=== PATIENT | male | born 1965 | race Caucasian/White ===

== ENCOUNTER 2018-08-10 21:04 | Inpatient (IN) ==
[2018-08-10 23:33] LABS: BASO# 0.05 X1000 (0.0-0.2); BASO% 0.3 % (0.0-0.8); EOS# 0.22 X1000 (0.0-0.7); EOS% 1.2 % (0.0-10.0); HEMATOCRIT 39.9 % (42.0-52.0); HEMOGLOBIN 13.6 g/dL (14.0-18.0); LYMPH# 1.45 X1000 (1.2-3.4); LYMPH% 7.8 % (20.5-51.1); MCH 28.6 PG (27-31); MCHC 34.1 g/dL (33-37); MCV 83.8 FL (81-99); MONO% 6.5 % (1.7-9.3); MPV 9.7 FL (7.4-10.4); NEUT# 15.66 X1000 (1.4-6.5); NEUT% 84.2 % (42.2-75.2); PLT 387 X1000 (130-400); RBC 4.76 XMIL (4.7-6.1); RDW 13.2 % (11.5-14.5); WBC 18.58 X1000 (4.8-10.8)
[2018-08-10] MEDS ORDERED: LEVAQUIN 500 MG/D5W 500 MG/100 ML IVPB IV SCH (23:45)
[2018-08-10] MEDS ORDERED: ZOFRAN IV PRN (23:45)
[2018-08-10] MEDS ORDERED: VANCOMYCIN 1 GM/NS 1 GM/250 ML IVPB IV ONE (23:47)
[2018-08-10] MEDS ORDERED: HUMALOG SUBQ ONE (23:49)
[2018-08-11 00:02] LABS: AGAP 17; ALB/GLOB RATIO 0.7; ALBUMIN 3.4 g/dL (3.5-5.0); ALKALINE PHOSPHATASE 127 U/L (32-122); BUN 18 mg/dL (8-22); C REACTIVE PROT QUANT 284.57 mg/L (0.00-5.00); CALCIUM 9.1 mg/dL (8.8-10.2); CHLORIDE 100 mmol/L (98-107); COSMO 288; CREATININE 1.1 mg/dL (0.7-1.2); ESTIMATED GFR > 60; GLUCOSE 421 mg/dL (70-104); GOT 10 U/L (10-34); GPT 11 U/L (10-44); POTASSIUM 4.2 mmol/L (3.5-5.1); SODIUM 134 mmol/L (136-145); TCO2 17 mmol/L (25-35); TOTAL BILIRUBIN 0.56 mg/dL (0.20-1.00); TOTAL PROTEIN 8.2 g/dL (6.3-8.3)
--- NOTE | 2018-08-11 00:33 | PROVIDER DOCUMENTATION ---
This chart was entered by Seble Davis Scribe, acting as scribe for Moises Becerra MD. HPI-Musculoskeletal Pain/Inj - GENERAL Chief Complaint: Extremity Pain Stated Complaint: (R) THIGH IS SWOLLEN, TIGHT, PAINFUL Time Seen by Provider: 08/10/18 21:37 Source: patient, family - HX OF PRESENT ILLNESS-MUSKULOSKELTAL Nature of Presenting Problem: 52 yom presents w/family w/ c/o rt outer thigh pain for 3.5 weeks after injected a new dm rx. pt is also on metformin and his pcp believed the injection rx would help control dm better. pt states pain is burning in nature and only in rt thigh. at bedside states pt had right sided weakness, gags, nausea, had fever on and off, and achy everywhere. pt doesn't check blood sugar regular but a1c is 8 last he checked. pt denies cp, abd pain, one sided weakness in er, headache and blurred vision. Review of Systems - Adult - REVIEW OF SYSTEMS - ADULT Constitutional: reports: see HPI, chills, fever. denies: fatique, night sweats Eyes: reports: no symptoms reported Ears, Nose, Mouth & Throat: reports: no symptoms reported Cardiovascular: reports: no symptoms reported. denies: chest pain Respiratory: reports: no symptoms reported. denies: chronic cough, cough, shortness of breath, wheezing Gastrointestinal: reports: see HPI, nausea, other (gagging). denies: abdominal pain, diarrhea, vomiting Genitourinary: reports: no symptoms reported Musculoskeletal: reports: see HPI, other (rt thigh swelling, rt thigh 510 cm and left thigh 480 cm). denies: bone pain, back pain, frequent leg cramps, joint pain, joint swelling, muscle aches, muscle weakness, neck pain Integumentary: reports: no symptoms reported Neurological: reports: no symptoms reported. denies: headache/migraines, loss of balance, numbness, paresthesia, seizure, slurred speech, syncope Psychiatric: reports: no symptoms reported Endocrine: reports: no symptoms reported Hematologic/Lymphatic: reports: no symptoms reported Allergic/Immunologic: reports: no symptoms reported All Other Systems: Reviewed and Negative Past History - Adult - PAST MEDICAL HISTORY-ADULT Review of Records: reports: Old Records Reviewed, Nursing Assessment Review, Medications Reviewed, Social history reviewed & non-contributory. Major Childhood Illnesses: reports: denies history Cardiovascular: reports: denies history Respiratory: reports: denies history Gastrointestinal: reports: denies history Obstetrical/Gynecological: reports: denies history Genitourinary: reports: denies history Musculoskeletal: reports: denies history Neurological: reports: denies history Psychiatric: reports: denies history Endocrine/Immune: reports: Diabetes Other Conditions: reports: denies history - PRIOR SURGERIES/PROCEDURES Surgical/Procedure History: reports: reviewed, not pertinent, other - PRIOR HOSPITALIZATIONS Prior Hospitalizations: reports: for other non-related - IMMUNIZATION STATUS Childhood Immunizations: See Nurse Assessment Flu Vaccine: See Nurse Assessment - FAMILY HISTORY Family History: reviewed, not pertinent - SOCIAL HISTORY Smoking: non-smoker Substance Use: alcohol Alcohol Use Frequency: rarely Physical Exam-Injury Related - Physical Exam-Injury Related Initial Vital Signs Reviewed: Yes General Appearance: alert, mild distress. negative: slow to respond, obtunded, combative Immobilization?: negative: backboard, C-collar Eyes: PERRL/EOMI, pink conjunctivae Head, Ears, Nose, Mouth & Throat: normocephalic/atraumatic, moist mucous membranes, normal ENT inspection Neck: non-tender, full range of motion, supple, normal inspection Respiratory: chest non-tender, lungs clear, normal breath sounds Cardiovascular: normal peripheral pulses, regular rate, rhythm Chest/Breast: deferred Peripheral Pulses: dorsalis-pedis (R): 2+, dorsalis-pedis (L): 2+ Abdominal Exam: normal bowel sounds, non tender, soft Male Genitalia: deferred Rectal Exam: deferred Hemoccult Exam: deferred Lymphatic: no adenopathy Back Exam: normal inspection, no CVA tenderness, no vertebral tenderness Extremity: normal range of motion, normal inspection, tenderness (tensor fasciae latae rt thigh). negative: calf tenderness, deformity, erythema, inflammation, pulse deficit, pedal edema, slow capillary refill, swelling Integumentary: normal color, warm/dry Neurologic: grossly normal, no motor/sensory deficits Psych/Mental Status: normal mood/affect, normal thought content, normal thought process, oriented x 3 - [place] Coma Score Best Eye Response ([place]): (4) open spontaneously Best Verbal Response ([place]): (5) oriented Best Motor Response ([place]): (6) obeys commands [place] Total: 15 Progress - PLAN OF CARE/RESULTS Progress/Plan/Lab Results: Vital Signs - 8 hr 08/10/18 21:20 08/10/18 23:29 08/10/18 23:31 Temperature 99.2 F Pulse Rate 118 H Respiratory Rate 20 Blood Pressure 139/84 194/86 155/85 O2 Sat by Pulse Oximetry 99 95 95 08/11/18 00:01 Temperature Pulse Rate Respiratory Rate Blood Pressure 182/87 O2 Sat by Pulse Oximetry 97 Laboratory Results - last 24 hr 08/10/18 08/10/18 23:16 23:16 WBC 18.58 H RBC 4.76 Hgb 13.6 L Hct 39.9 L MCV 83.8 MCH 28.6 MCHC 34.1 RDW Std Deviation 13.2 Plt Count 387 MPV 9.7 Neut % (Auto) 84.2 H Lymph % (Auto) 7.8 L Grant % (Auto) 6.5 Eos % (Auto) 1.2 Baso % (Auto) 0.3 Neut # (Auto) 15.66 H Lymph # (Auto) 1.45 Grant # (Auto) 1.20 H Eos # (Auto) 0.22 Baso # (Auto) 0.05 Sodium 134 L Potassium 4.2 Chloride 100 Carbon Dioxide 17 L Anion Gap 17 BUN 18 Creatinine 1.1 Estimated GFR/1.73 m2 > 60 BUN/Creatinine Ratio 16 Glucose 421 H* Calculated Osmolality 288 Calcium 9.1 Total Bilirubin 0.56 AST 10 ALT 11 Alkaline Phosphatase 127 H C-Reactive Prot, Quant 284.57 H Total Protein 8.2 Albumin 3.4 L Globulin 4.8 Albumin/Globulin Ratio 0.7 Orders Category Date Time Status Admit - [facility] Routine AdmDCTranf 08/10/18 23:45 Active Activity - Bed Rest with BRP ORDERED Care 08/10/18 23:45 Active FSBS/Accucheck Result AC + HS Care 08/10/18 23:49 Active Resuscitation Status Routine Care 08/10/18 23:45 Ordered Saline Loc DIRECTED Care 08/10/18 23:45 Active Vital Signs Order ROUTINE Care 08/10/18 23:45 Active Diabetic Diet Diet 08/10/18 23:[address] EXT LOWER RIGHT W/O CON [CT] Stat Exams 08/10/18 22:41 Taken BLOOD CULTURE [BLDCUL] Stat Lab 08/10/18 00:04 Ordered C REACTIVE PROT QUANT [CHEM] Stat Lab 08/10/18 23:16 Completed CBC WITH ELECTRONIC DIFF [HEME] Stat Lab 08/10/18 23:16 Completed COMPREHENSIVE METABOLIC PANEL [CHEM] Stat Lab 08/10/18 23:16 Completed Acetaminophen [Tylenol] Med 08/10/18 23:45 Active 650 mg PO Q6H PRN PRN Hydrocodone/APAP 10 mg/325 mg [[place]-10] Med 08/10/18 23:51 Active 1 each PO Q6H PRN PRN Hydromorphone [Dilaudid] Med 08/10/18 23:50 Active 1 mg IV Q3H PRN PRN Insulin Lispro [Humalog] Med 08/10/18 23:49 Discontinued See Protocol SUBQ NOW ONE Levofloxacin 500 mg/D5w [Levaquin 500 mg/D5w] Med 08/10/18 23:45 Active 500 mg in 100 ml IV Q24H Ondansetron [Zofran] Med 08/10/18 23:45 Active 4 mg IV Q4H PRN PRN Vancomycin 1 gm/Ns Med 08/10/18 23:47 Active 1 gm in 250 ml IV NOW Transfer/Admit Order [TRANSFER] Routine Transfer 08/10/18 23:53 Ordered A/P Cellulitis of right thigh. elevated WBC, nausea, fever, chills. secondary to diabetic medication injections Exenetide , will admit for IV AB treatment Result Diagrams: 08/10/18 23:16 08/10/18 23:16 - CT/MRI 1 CT Study: Lower Ext ( Findings: The rt hip demonstrates superior lateral joint space loss and osteophytosis consistent w/mild arhtritis. No hip fracture, dislocation or avn. Impression: 1. edema in the subcutaneous tissues of the lateral and posterior thigh consistent w/nonspecific cellulitis. 2. No femoral fracture or lesion identified. 3. Mild right hip arthritis.) Impression: Abnormal Comparison with other Films: no prior study - CONSULTS/PCP/HOSPITALIST Notification #1 *Consult/PCP/Hospitalist*: Dr Jovel Time Discussed: 23:30 Consult Disposition: Admit Departure - Departure Date of Disposition Decision: 08/11/18 Time of Disposition Decision: 00:32 DIAGNOSIS: Cellulitis of thigh Disposition: ADMITTED INPATIENT 09 Certified Medical Emergency: Emergent Condition: Stable Additional Freetext Instructions: We have examined and treated you today on an emergency basis only. This was not a substitute for, or an effort to provide, complete medical care. In most cases, you must let your doctor check you again. Tell your doctor about any new or las ting problems. We cannot recognize and treat all injuries or illnesses in one Emergency Department visit. If you had special tests, such as X-rays or CT scans, will be reviewed by radiologist and will call you if there are any new suggestions Follow up with primary care provider in 1 to 2 days if no improvement. If you do not have a primary care provider, you need to choose one as soon as possible. Take medicines as prescribed. Monitor for any side effects or adverse events from medications. If any side effect, adverse event or rash develops, or if you suspect any other adverse reaction to the medication, then discontinue the medication immediately and contact clinic /PCP or go to the nearest ER. Narcotic meds / sedative meds instruction - patent advised not to drive, operate any machinery or go into water after taking meds as it may impair mental ability to react to the situation in an appropriate manner . Continue other current medicines. Follow up with PCP within 24-48 hours, or s ooner if symptoms worsen or fail to improve. Patient / guardian verbalizes understanding of treatment plan, medication, and side effects and agrees with treatment plan. Patient leaves ER in stable co ndition and ambulatory state. Return to ER as needed. Discharge instructions reviewed verbally and given to patient in written form. Follow up with primary care provider. Referrals and Follow-Ups: Tyrel Crowe [Primary Care Provider] - - Critical Care Note This patient required my direct & personal management of CC.: No Attestation - Physician/ ROMAN Attestation Patient care was provided by Advanced Practice Provider:: No The physician spent face to face time with patient:: Yes Advanced Practice Provider documentation review:: Supervising physician onsite and consulted in the evaluation and care of this patient. The physician did have a face to face encounter with the patient. This chart was documented by the indicated scribe, (Seble Davis Scribe) and accurately reflects the services I performed and decisions made by me, Moises Becerra MD, as attested by the provider's signature.
[2018-08-11] MEDS: DILAUDID IV PRN ×6 (00:35→20:25)
--- NOTE | 2018-08-11 01:14 | HISTORY AND PHYSICAL ---
ADMISSION DIAGNOSIS: Cellulitis, right lower extremity. HISTORY OF PRESENT ILLNESS: This 52-year-old white male is a noninsulin-dependent diabetic with marginal control. He has been tried on multiple GOP-1 injectables, but has failed for various reasons. He has been on Bydureon for quite some time. He began to develop swelling and pain in his right lower extremity after the last injection. He got to the point where he could not walk, and his right lateral thigh near the injection site was swollen, hard, and painful. He also ran low-grade fevers at home and presented to the emergency room. Initial evaluation showed a very hard right lateral thigh. A white blood cell count of 18.5, blood sugar of 421. A CT scan of the lower extremity was performed, I was not privy to preliminary reading other than what I was told by the emergency room physician, and he told me that it showed a cellulitis of the right leg. The patient is admitted for treatment of cellulitis versus abscess versus a drug reaction in the right thigh. PAST MEDICAL HISTORY: 1. Noninsulin-dependent diabetes mellitus. He has failed Ozempic, Trulicity, and he is now on Bydureon B size. His last A1c was in the "low 8's." He is also taking Farxiga. 2. The patient has obstructive sleep apnea, is on CPAP at home. PAST SURGICAL HISTORY: Not obtained. ALLERGIES: No known drug allergies. FAMILY HISTORY: The patient is adopted. SOCIAL HISTORY: The patient is and lives with his . He is a nonsmoker. He rarely drinks alcohol. PRIMARY CARE PHYSICIAN: Dr. Tyrel Crowe. REVIEW OF SYSTEMS: The patient denies any significant weight loss or weight gain. He has had low- grade fever but denies any chills or rigors. He has not had any cough, wheezing, or shortness of breath. He denies any chest pain or palpitations. He has had no nausea or vomiting. He has had no abdominal pain. He denies any genitourinary symptoms. He has had normal bowel movements. He localizes the pain into his right lateral thigh and has difficulty moving it as a result, and has difficulty walking and transferring. PHYSICAL EXAMINATION: GENERAL: The patient is alert, oriented, conversive and appropriate. In general, he is a well- developed white male in no acute distress. HEENT: The sclerae are anicteric. Oral mucosa has adequate hydration and normal coloration. NECK: No carotid bruits or lymphadenopathy is noted. LUNGS: Clear to auscultation in all bailey. CARDIOVASCULAR: Regular at approximately 100 beats per minute at the time of my examination. There are no significant murmurs or rubs noted. ABDOMEN: Protuberant as one might expect with a type 2 diabetic. Bowel sounds are present. He is soft, nontender, nondistended. GENITOURINARY: Not performed. EXTREMITIES: The left leg is normal. The right leg is approximately the same size, but the lateral aspect of it is nearly rock hard and tender to palpation, and obviously painful to move under his own volition. I do not detect any superficial redness or warmth. There is no fluctuance in the leg. LABORATORY: White cells 18.5, hematocrit 39.9. Glucose 421, serum bicarb is 17. ASSESSMENT/PLAN: 1. I will be curious to see the final reading of the CT scan, but I am going to treat him as a cellulitis or deep tissue infection. I want to give him a single dose of vancomycin as well as Levaquin on a scheduled basis. The admitting team can decide whether to continue vancomycin and/or change to a polymicrobial coverage, such as Zosyn. Blood cultures have been drawn. Pain medication has been handled by oral route and breakthrough pain through the IV route with Dilaudid. 2. The patient's blood sugar is clearly not controlled. We discussed many options for his treatment going forward, and he might benefit from a trial of Victoza. He does not seem to do well with any of the weekly injectables. The patient will be put on a diabetic diet and, for the time being, I am suspending his other oral hypoglycemic agents and we will cover him with a sliding scale. Since he is insulin naive, I have started him on a low dose protocol with the sliding scale. This may need to be accelerated if appropriate control is not achieved in fairly short order. 3. The patient will use his own CPAP machine from home. I have written for some sleeping medication to be used on an as-needed basis and we will monitor his progress. 4. Expected length of stay is anywhere from 2 to 4 days. Disposition will likely be to home. cc: Maximo Verma MD
[2018-08-11] MEDS ORDERED: RESTORIL PO PRN (02:46)
[2018-08-11] MEDS ORDERED: BENADRYL IV ONE (02:54)
[2018-08-11] MEDS: NORCO-10 PO PRN (05:41)
--- NOTE | 2018-08-11 07:58 | Diag Imaging Result Doc PS360 ---
EXAM: CT EXT LOWER RIGHT W/O CON 08/10/2018 HISTORY: leg swelling, pain, inability to walk ( rt femur) TECHNIQUE: CT of the right hip COMMENT: There is a bone island in the femoral head. There is no evidence of fracture dislocation periosteal reaction or erosion. There is minimal osteophyte formation in the femoral head. There is some apparent soft tissue swelling on the lateral aspect of the distal femur and in the subcutaneous fat of the lateral thigh. IMPRESSION: Osteoarthritis. No evidence of acute bony disease. Soft tissue swelling as described. Electronically signed by Vincenzo Del Cid 08/11/2018 7:55 AM
[2018-08-11] MEDS ORDERED: BASAGLAR SUBQ ONE (09:27)
[2018-08-11 10:09] LABS: HEMOGLOBIN A1C 9.1 % (4.8-6.0)
[2018-08-11] MEDS: APIDRA SUBQ SCH ×3 (12:22→21:48)
[2018-08-11] MEDS ORDERED: VANCOMYCIN IV PER PHARMACY MISC SCH (14:15)
--- NOTE | 2018-08-11 14:50 | PROGRESS NOTE ---
DATE: 08/11/2018 This morning Mr. Aguilar refers to be hurting and he looks physically in pain. OBJECTIVE: Vitals: Blood pressure is 161/83, pulse is 102, respiration is 21, temperature is 99.4 degrees. General: Mr. Aguilar 52-year-old male he is in bed. He is in a lot of painful distress. Mucosa is pink and moist. Anicteric. Acyanotic. Neck: Supple. Chest: Clear to auscultation. Cardiovascular: Regular rate and rhythm, slightly tachycardic. No murmurs, no rubs, no gallops. Abdomen: Soft, nontender. Bowel sounds present. Extremities: No pedal edema. Distal pulses present. More specifically the right lateral aspect of the thigh is very contracted and extremely tender on palpate. There was no any erythematous changes over the overlying skin and there was no fluctuation. CYANIDE CASE HARDENER: Patient is awake, alert and oriented. LABORATORY DATA: Has been reviewed. WBC is 18.58, hemoglobin is 13.6, platelet count of 386,000, glucose is 421. Inflammatory markers are remarkably elevated. CT scan of the lower extremity shows no evidence of acute bony. There is a soft tissue swelling. ASSESSMENT: 1. Sepsis on presentation secondary to skin and soft tissue infection. 2. Cellulitis to right lateral aspect of the thigh. Patient is currently on Levaquin however will change this to cover more typical skin pathogens including strep and staph so will put the patient on Ancef and also vancomycin/. Now I understand that Mr. Aguilar had what appeared to be a Kate syndrome in the emergency room however he said it was too fast at the rate at which it was administered which is usually what happens so we going to administer this at a very slow rate and I have indicated that on the order so the nurses will be aware. 3. Uncontrolled diabetes mellitus. Patient was on Bydureon injections. However his A1c is still 9.1 and glucose checks have been remarkably high, will control this with adequate insulin regimen during the hospital course. So Mr. Aguilar will continue to be on the IV antibiotics, adequate glucose control and hydration and will reevaluate his legs over the course of 24-48 hours. If there is no any remarkable improvement I think we might need to rescan the thigh high to rule out any abscess that has formed in the interim and get surgery to take care of it. cc: Osbaldo Gonzales MD [facility]
[2018-08-11] MEDS: TYLENOL PO PRN ×2 (15:29→21:44)
[2018-08-11] MEDS: KEFZOL 2 GM/D5W 2 GM/50 ML IVPB IV SCH ×2 (15:31→21:44)
[2018-08-11] MEDS: PROTONIX IV SCH (15:37)
[2018-08-11] MEDS: VANCOMYCIN 2,000 MG in NS 500 ML IV SCH (17:05)
[2018-08-11] MEDS: HUMALOG SUBQ SCH (17:05)
[2018-08-11] MEDS: MELATONIN PO SCH (21:44)
[2018-08-11] MEDS: NAPROSYN PO SCH (21:44)
[2018-08-12] MEDS: DILAUDID IV PRN ×3 (04:01→21:25)
[2018-08-12] MEDS: APIDRA SUBQ SCH ×4 (06:48→21:24)
[2018-08-12] MEDS: KEFZOL 2 GM/D5W 2 GM/50 ML IVPB IV SCH ×3 (06:48→21:24)
[2018-08-12] MEDS: NORCO-10 PO PRN ×2 (06:53→17:40)
[2018-08-12 07:30] LABS: BASO# 0.02 X1000 (0.0-0.2); BASO% 0.1 % (0.0-0.8); EOS# 0.22 X1000 (0.0-0.7); EOS% 1.3 % (0.0-10.0); HEMATOCRIT 36.8 % (42.0-52.0); HEMOGLOBIN 12.4 g/dL (14.0-18.0); IMM GRAN# 0.07 X1000 (0.0-0.04); IMM GRAN% 0.4 % (0.0-0.5); LYMPH% 9.6 % (20.5-51.1); MCH 28.4 PG (27-31); MCHC 33.7 g/dL (33-37); MCV 84.2 FL (81-99); MONO# 1.44 X1000 (0.11-0.59); MONO% 8.6 % (1.7-9.3); MPV 9.4 FL (7.4-10.4); NEUT# 13.34 X1000 (1.4-6.5); PLT 370 X1000 (130-400); RBC 4.37 XMIL (4.7-6.1); RDW 13.5 % (11.5-14.5); WBC 16.69 X1000 (4.8-10.8)
[2018-08-12 07:52] LABS: AGAP 12; ALB/GLOB RATIO 0.7; ALKALINE PHOSPHATASE 115 U/L (32-122); BUN 15 mg/dL (8-22); CALCIUM 9.3 mg/dL (8.8-10.2); CHLORIDE 97 mmol/L (98-107); COSMO 275; CREATININE 0.9 mg/dL (0.7-1.2); ESTIMATED GFR > 60; GLUCOSE 275 mg/dL (70-104); GOT 7 U/L (10-34); GPT 9 U/L (10-44); POTASSIUM 4.3 mmol/L (3.5-5.1); SODIUM 132 mmol/L (136-145); TCO2 23 mmol/L (25-35); TOTAL BILIRUBIN 0.46 mg/dL (0.20-1.00); TOTAL PROTEIN 7.3 g/dL (6.3-8.3)
[2018-08-12] MEDS: NAPROSYN PO SCH ×2 (08:26→21:24)
[2018-08-12] MEDS: BASAGLAR SUBQ SCH (08:27)
[2018-08-12] MEDS: HUMALOG SUBQ SCH ×3 (08:27→17:35)
[2018-08-12] MEDS: PROTONIX IV SCH (14:33)
[2018-08-12] MEDS: SODIUM CHLORIDE 0.9% INJ SCH (14:33)
--- NOTE | 2018-08-12 15:28 | PROGRESS NOTE ---
DATE: 08/12/2018 SUBJECTIVE: The patient resting in bed. Has a significant odor in the room with him. OBJECTIVE: Vital signs: Temperature 99.2, pulse 88, respiratory rate 16, blood pressure 141/82, oxygen saturation 100%. HEENT: Atraumatic, normocephalic. Cardiovascular System: S1, S2. Respiratory system has evidence of good entry bilaterally. Abdomen is soft, nontender, no masses felt. Extremities: Right thigh laterally feels somewhat tense to palpation. No evidence of significant edema in the lower extremities. Central nervous system: No obvious focal deficit noted. LABORATORIES: WBC 16.6, hematocrit 36.8, platelet count of 370,000. Sodium 132, potassium 4.3, chloride 97, bicarbonate 28, BUN 15, creatinine 0.9. ASSESSMENT AND PLAN: 1. Sepsis. Primary source most likely cellulitis, right thigh. Continue antibiotics and follow up on cultures. 2. Diabetes mellitus. Continue patient on sliding scale insulin as well as blood sugar monitoring. 3. Gastrointestinal prophylaxis. SCDs. cc: Jamar Deluca MD
[2018-08-12] MEDS: VANCOMYCIN 2,000 MG in NS 500 ML IV SCH (17:35)
[2018-08-12] MEDS: MELATONIN PO SCH (21:24)
[2018-08-13] MEDS: DILAUDID IV PRN ×5 (00:22→21:53)
[2018-08-13] MEDS: APIDRA SUBQ SCH ×4 (06:27→22:07)
[2018-08-13] MEDS: KEFZOL 2 GM/D5W 2 GM/50 ML IVPB IV SCH ×3 (06:33→22:02)
[2018-08-13] MEDS: NORCO-10 PO PRN ×2 (06:36→19:27)
[2018-08-13] MEDS: HUMALOG SUBQ SCH ×3 (09:41→16:55)
[2018-08-13] MEDS: NAPROSYN PO SCH ×2 (09:43→22:00)
[2018-08-13] MEDS: BASAGLAR SUBQ SCH (09:44)
[2018-08-13] MEDS ORDERED: VANCOMYCIN IV PER PHARMACY MISC SCH (12:45)
[2018-08-13] MEDS: SODIUM CHLORIDE 0.9% INJ SCH (13:32)
[2018-08-13] MEDS: PROTONIX IV SCH (13:32)
--- NOTE | 2018-08-13 13:35 | Diag Imaging Result Doc PS360 ---
CT EXT LOWER RIGHT W/CON - 08/13/2018 INDICATION: r/o abcess right thigh TECHNIQUE: CT right thigh with contrast COMPARISON: None FINDINGS: In the posterior lateral, mid right thigh, there is an intramuscular irregular fluid collection with surrounding variable thickness wall enhancement. This is compatible with an intramuscular abscess. This measures 3.9 x 4.4 x 8.3 cm in AP, lateral, and craniocaudal extent. This involves the vastus lateralis musculature, and extends to the fascial rakel. Otherwise, there is moderate subcutaneous soft tissue swelling at the posterior lateral thigh. No soft tissue gas. Bones are intact and normally mineralized. IMPRESSION: Intramuscular abscess of the vastus lateralis at the posterior lateral, mid right thigh. Electronically signed by Skip Mendiola 08/13/2018 1:32 PM
[2018-08-13] MEDS ORDERED: VANCOMYCIN 2,000 MG in NS 500 ML IV SCH (16:00)
--- NOTE | 2018-08-13 16:57 | PROGRESS NOTE ---
DATE: 08/13/2018 SUBJECTIVE: The patient resting in bed. OBJECTIVE: Vitals: Temperature is 98.3, pulse 102, respiratory rate 18, blood pressure 143/75, oxygen saturation is 100%. HEENT: Atraumatic, normocephalic. Cardiovascular System: S1, S2. Respiratory system has evidence of good air entry bilaterally. Abdomen is soft, nontender. No masses felt. Extremities: The patient has significant area of induration involving the posterior lateral right thigh region. Central nervous system: No obvious focal deficits noted. DIAGNOSTIC STUDIES: WBC 16.6, hematocrit 36.8, platelet count of 370,000. Sodium 142, potassium 4.3, chloride 97, bicarbonate 23, BUN 15, creatinine 0.9. Blood cultures are positive for Staphylococcus aureus and this is sensitive to oxacillin. ASSESSMENT AND PLAN: 1. Oxacillin-sensitive Staphylococcus aureus bacteremia. Continue current antibiotic regimen. ID consulted to continue antibiotic management. 2. Abscess, right thigh. This is confirmed by CT scan of the right lower extremity. Surgery has been consulted. 3. Diabetes mellitus. Continue sliding scale insulin as well as blood sugar monitoring. 4. Deep vein thrombosis prophylaxis. Sequential compression devices. 5. Gastrointestinal prophylaxis. PPI. cc: Jamar Deluca MD
--- NOTE | 2018-08-13 16:59 | GENERAL SURGERY CONSULTATION ---
DATE: 08/13/2018 REQUESTING PHYSICIAN: The hospitalist. REASON FOR CONSULTATION: Right thigh abscess. HISTORY OF PRESENT ILLNESS: A 52-year-old gentleman with [id number] diabetes, who apparently tried an injectable medication his right thigh. He developed erythema, swelling, and pain at this area. He also developed low-grade fevers and presented to the emergency department. He has a very tender right thigh. He had a CT scan that showed a thigh abscess that is intramuscular. I was asked to weigh an opinion. He still has significant pain. PAST MEDICAL HISTORY: 1. Diabetes mellitus. 2. Obstructive sleep apnea. PAST SURGICAL HISTORY: None. ALLERGIES: None. HOME MEDICATIONS: Reviewed. SOCIAL HISTORY: Nonsmoker. REVIEW OF SYSTEMS: A full 10 point review of systems was obtained and negative except as specified in HPI. FAMILY HISTORY: Reviewed with patient and noncontributory. PHYSICAL EXAMINATION: Vital Signs: Patient is currently afebrile. His vital signs stable. General: No acute distress, but appears to be an uncomfortable male, who looks stated age. HEENT: Normocephalic, atraumatic. Pupils equal, round, and reactive to light. Mucous membranes moist. Oropharynx benign. Neck: Supple. Trachea midline. Cardiovascular: Regular rate and rhythm. Lungs: Grossly clear. Abdomen: Soft, nontender, nondistended. Extremities: Tenderness around the lateral edge of the right thigh at the midportion. Some mild erythema. Vascular: All extremities perfused. Neurologic: Grossly intact. Skin: As noted above. LABORATORY: White blood count 16, hematocrit 36. Remainder of labs reviewed. ASSESSMENT AND PLAN: A 52-year-old gentleman with right thigh abscess. Right thigh abscess. At this time, reviewed the CT scan and noted the findings above. We performed a bedside ultrasound-guided aspiration with which I got pus out, could not drain it all, but we will send enough for culture. We will plan on surgical intervention with drainage in the area. Discussed with him the risks, benefits, and alternatives. We will plan on doing it tomorrow since he ate lunch rather late today and try to do in the operating room. cc: Chan Pardo MD
--- NOTE | 2018-08-13 18:06 | INFECTIOUS DISEASE CONSULT REP ---
DATE: 08/13/2018 CONCLUSION: Patient has a Staph aureus bacteremia which undoubtedly arises from the patient's right thigh abscess as seen on CT scan, the patient developed the abscess because he has been giving himself injections of Bydureon and I suspect 1 of the injections became infected and from the abscess in the thigh, the patient developed a bacteremia. RECOMMENDATIONS: Dr. Pardo is going to take the patient to the operating room and drain the abscess. I have discontinued vancomycin and put the patient on Ancef 2 g IV every 8 hours. DISCUSSION: The patient has been injecting himself with medication for diabetes, approximately 5 to 6 weeks ago, he developed a progressive swelling, pain and induration in the right thigh. He has been admitted to the hospital and on CT scan, an abscess was located. The patient had blood cultures drawn, 1 of 2 is growing an oxacillin sensitive Staph aureus. Dr. Pardo aspirated material from the abscess but the Gram stain culture are still pending from it. REVIEW OF SYSTEMS: Eyes/ears: His vision and hearing is good. Neck: No pain. Respiratory: No cough or shortness of breath. Cardiac: No chest pain or palpitations. : No dysuria or flank pain. GI: The patient has not passed a stool in 3 days and usually he goes daily. Bones, joints, muscles: See present illness. Endocrine: Patient is diabetic. He does not have thyroid disease. Neurologic: The patient does not have seizures. He has not lost any motor or sensory function. PAST MEDICAL HISTORY: Previous hospitalizations and operations: He has had nasal surgery and he has had extraction of wisdom teeth. Medical diseases: Positive for diabetes mellitus and obesity. Infectious disease history: Negative for pneumonia and UTI. FAMILY HISTORY: Unknown by the patient. He was adopted. SOCIAL HISTORY: The patient lives in [place]. He is . He has dogs and cats for pets. The patient works with computers. Patient does not smoke cigarettes or abuse drugs. He rarely drinks an alcoholic beverage. HOME MEDICATION: Includes only 1 by mouth which is metformin and he also does injections as mentioned above. PHYSICAL EXAMINATION: Vital Signs: Temperature is 98.3, pulse 102, respirations 18, blood pressure is 143/75. The patient is 5 feet 10 inches tall, weighs 215 pounds. General: This is an obese, middle-aged male. He is in no acute distress. HEENT: He can hear my spoken words and see near objects. He does not have any white patches on his tongue. Neck: No meningismus. Lungs: Clear to auscultation. Cardiovascular: Regular heart rate. Abdomen: Soft and nontender. Extremities: The right thigh was indurated and tender. Neurologic: Patient is alert. He can move his extremities. There is no tremor. Integument: No rash noted. Thank you for the consult. cc: Efren Stover MD
[2018-08-13] MEDS: MELATONIN PO SCH (22:00)
[2018-08-14] MEDS: DILAUDID IV PRN (01:57)
[2018-08-14] MEDS: KEFZOL 2 GM/D5W 2 GM/50 ML IVPB IV SCH ×2 (06:11→15:22)
[2018-08-14] MEDS: APIDRA SUBQ SCH ×3 (06:17→18:14)
--- NOTE | 2018-08-14 06:28 | GENERAL SURGERY PROGRESS NOTE ---
DATE: 08/14/2018 SUBJECTIVE: The patient seems to be doing okay. OBJECTIVE: Vital Signs: The patient is currently afebrile. His vital signs are stable. General: No acute distress. HEENT: Normocephalic, atraumatic. Pupils equal, round, and reactive to light. Mucous membranes moist. Oropharynx benign. Neck: Supple. Trachea midline. Cardiovascular: Regular rate and rhythm. Lungs: Grossly clear. Abdomen: Soft, nontender, nondistended. Extremities: Cellulitis to the leg, essentially unchanged on the right leg. Vascular: All extremities perfused. Neurologic: Grossly intact. Skin: As noted above. ASSESSMENT AND PLAN: A 53-year-old gentleman with right leg abscess. Right leg abscess: At this time, we will plan on drainage in the operating room. The risks, benefits, and alternatives were discussed with the patient. Consent has been signed. We will do it this morning. cc: Chan Pardo MD
[2018-08-14] MEDS ORDERED: DIPRIVAN 1% ONE (06:37)
[2018-08-14] MEDS ORDERED: INSULIN PEN NEEDLES ONE (06:39)
[2018-08-14] MEDS ORDERED: QUELICIN (DOSE) ONE (06:39)
[2018-08-14] MEDS ORDERED: FENTANYL ONE (06:40)
[2018-08-14] MEDS ORDERED: ZOFRAN ONE (07:23)
--- NOTE | 2018-08-14 07:35 | OPERATIVE NOTE ---
PROCEDURE DATE: 08/14/2018 PREOPERATIVE DIAGNOSIS: Right thigh intramuscular abscess. POSTOPERATIVE DIAGNOSIS: Right thigh intramuscular abscess. PROCEDURE PERFORMED: Incision and drainage of right thigh intramuscular abscess with ultrasound guidance. SURGEON: Dr. Chan Pardo. INTERNET SALES ASSOCIATE: None. ANESTHESIA: General endotracheal. INTRAOPERATIVE FINDINGS: We used the ultrasound to identify the exact location in order to make the incision and drainage. It showed the abscess in the subfascial intramuscular plane. COMPLICATIONS: None at the time of this dictation. ESTIMATED BLOOD LOSS: 10 mL. SPECIMENS REMOVED: None. DRAINS: None. PACKING: Quarter-inch iodoform packing was placed. BRIEF HISTORY: A 53-year-old gentleman from whom we aspirated purulence out from his leg and wanted to have it drained. The risks, benefits, and alternatives were discussed. All questions answered. DESCRIPTION OF PROCEDURE: After informed consent was obtained, the patient was brought to the operative theatre, transferred to the operating table, and placed in the supine position. General endotracheal anesthesia was then performed without complication. A formal time-out was then performed, confirming patient, date, and procedure. All were in agreement. At that time, attention was directed to the right leg. It was elevated, prepped and draped in a sterile fashion. After the time-out, we used the ultrasound to identify the abscess. We found an area that was in the most dependent portion of it. We made our incision over this. We made the incision approximately 4 cm long. I made incision through the fascia rakel to enter into the lateral compartment where the vastus lateralis was. We encountered an intramuscular abscess which I bluntly dissected and drained. We irrigated it out copiously until the suction fluid was essentially just irritated blood. We then placed quarter-inch iodoform packing into the wound. The patient tolerated the procedure well and had a sterile dressing applied. cc: Chan Pardo MD
[2018-08-14] MEDS ORDERED: NORCO-10 ONE (07:48)
[2018-08-14] MEDS: HUMALOG SUBQ SCH ×3 (08:40→18:17)
[2018-08-14] MEDS: BASAGLAR SUBQ SCH (11:09)
[2018-08-14] MEDS: NAPROSYN PO SCH (11:10)
[2018-08-14] MEDS: PROTONIX IV SCH (15:12)
[2018-08-14] MEDS: SODIUM CHLORIDE 0.9% INJ SCH (15:12)
[2018-08-14] MEDS: NORCO-10 PO PRN (15:21)
--- NOTE | 2018-08-14 16:08 | PROGRESS NOTE ---
DATE: 08/14/2018 SUBJECTIVE: The patient is resting comfortably in bed. He is still complaining of right thigh pain but compared with admission, is much better. We do have a positive blood culture that showed Staphylococcus aureus, MSSA, and also we have a thigh culture from the surgery that showed gram- positive cocci. Likely it is the same organism, he has been placed on cefazolin 2 g every 8 hours. Infectious Disease department on board. OBJECTIVE: Vital Signs: Temperature 98.2 degrees, pulse 89, respiratory rate 18, blood pressure 135/81, oxygen saturation 100% on room air. HEENT: Head normocephalic, no trauma. PERRLA. Neck: Supple. No JVD. No masses. Central trachea. Chest: Clear to auscultation. No wheezing. No rales. Abdomen: Soft, nontender, nondistended. No hepatosplenomegaly. Cardiovascular: RRR. Extremities: He does have a right thigh dressing that looks clean, dry, and intact. The right thigh is painful to palpation. I do not see any drainage. Neurological: The patient is alert and oriented x3. No focal deficits. LABORATORY: Glucose 330. ASSESSMENT AND PLAN: 1. Methicillin-sensitive Staphylococcus aureus bacteremia. Continue with current antibiotic. Infectious Disease department following this patient closely. I have requested a new blood culture for tomorrow morning. 2. Abscess, on the right thigh. Status post I D, postoperative day #1. Surgery department on board. Continue with same management. 3. Type 2 diabetes. Hemoglobin A1c is 9.1. I have increased the dose of the Lantus because the blood sugar has been always above 200 and sometimes above 300. Upon admission, it was 421. We will monitor. 4. Deep vein thrombosis prophylaxis with sequential compression devices. 5. Gastrointestinal prophylaxis with proton pump inhibitors. 6. Constipation. I have placed this patient on MiraLAX. cc: Gagandeep Mcgee MD
--- NOTE | 2018-08-14 16:59 | INFECTIOUS DISEASE PROGRESS NO ---
DATE: 08/14/2018 PRESENT ILLNESS: The patient has a Staph aureus bacteremia which undoubtedly originates from a Staph aureus abscess in the right leg. The patient is status post incision and drainage of the abscess by Dr. Pardo. MEDICATIONS: The patient is on Ancef. PHYSICAL EXAMINATION: Vital Signs: Temperature is 98.2 degrees, pulse 89, respirations 18, blood pressure 135/81. General: This is an obese but otherwise healthy-appearing, middle-aged male. He is in no acute distress. Head, eyes, ears, nose, and throat: He can hear my spoken words and see near objects. He does not have any white coating on his tongue. Neck: There is no pain in his neck when he turns his head. Lungs: Clear to auscultation. Cardiovascular: Regular heart rate. Abdomen: Soft and nontender. Extremities: Patient has a dressing over the right thigh where the incision and drainage was performed yesterday by Dr. Pardo. Neurologic: The patient is alert. He can move his extremities. There is no tremor. LAB AND X-RAY: The patient's blood cultures are growing an oxacillin sensitive Staph aureus and the patient's abscess culture is growing gram-positive cocci. There is no new radiographic finding. There is no new laboratory studies other than that mentioned above. There is no new radiographic study for today. ASSESSMENT AND PLAN: Tomorrow I am going to draw blood cultures on the patient and if they are negative at the 48 hour reading, then we can put a PICC in the patient and send him home on IV Ancef for a total of 2 weeks. Day #1 of the treatment will be the first day that the blood cultures are sterile. Also for tomorrow, blood cultures and CBC have been ordered. COMORBIDITIES: He has diabetes mellitus. The thought is that the patient developed the abscess to begin which was caused by the Bydureon injections that the patient has been giving himself to treat his diabetes with. cc: Efren Stover MD
[2018-08-14] MEDS: MIRALAX PO SCH (18:11)
[2018-08-15] MEDS: KEFZOL 2 GM/D5W 2 GM/50 ML IVPB IV SCH ×4 (00:02→23:22)
[2018-08-15] MEDS: TYLENOL PO PRN (00:06)
[2018-08-15] MEDS: APIDRA SUBQ SCH ×5 (00:09→20:49)
[2018-08-15] MEDS: MELATONIN PO SCH ×2 (00:09→20:52)
[2018-08-15] MEDS: DILAUDID IV PRN ×2 (00:09→11:24)
[2018-08-15] MEDS: NORCO-10 PO PRN ×2 (06:00→20:52)
--- NOTE | 2018-08-15 06:17 | GENERAL SURGERY PROGRESS NOTE ---
DATE: 08/15/2018 SUBJECTIVE: Patient seems to be doing better than he was. He is having less pain. OBJECTIVE: Vital Signs: Patient is currently afebrile. His vital signs are stable. General: No acute distress. HEENT: Normocephalic, atraumatic. Pupils equal, round, reactive to light. Mucous membranes are moist. Oropharynx benign. Neck: Supple. Trachea midline. Cardiovascular: Regular rate and rhythm. Lungs: Grossly clear. Abdomen: Soft, nontender, nondistended. Extremities: Right leg is much improved pain-alvarado. Removed packing which patient tolerated. Skin: Wound as noted above. Vascular: All extremities perfused. Neurologic: Grossly intact. LABORATORY: None this morning. Microbiology wound shows gram-positive cocci. He does have Staph aureus in his blood. I would assume these are probably the same organism. ASSESSMENT AND PLAN: A 53-year-old gentleman status post incision and drainage of intramuscular abscess on the right thigh. Status post drainage. At this time, removed packing. The patient seems to be doing okay, his pain is improved. I will defer antibiotic regimen to Infectious Disease. cc: Chan Pardo MD
[2018-08-15 07:39] LABS: BASO# 0.02 X1000 (0.0-0.2); BASO% 0.2 % (0.0-0.8); EOS# 0.29 X1000 (0.0-0.7); EOS% 2.7 % (0.0-10.0); HEMOGLOBIN 10.9 g/dL (14.0-18.0); IMM GRAN# 0.05 X1000 (0.0-0.04); IMM GRAN% 0.5 % (0.0-0.5); LYMPH# 1.61 X1000 (1.2-3.4); LYMPH% 15.1 % (20.5-51.1); MCV 84.8 FL (81-99); MONO% 7.5 % (1.7-9.3); MPV 9.3 FL (7.4-10.4); NEUT# 7.89 X1000 (1.4-6.5); PLT 371 X1000 (130-400); RBC 3.89 XMIL (4.7-6.1); RDW 12.8 % (11.5-14.5); WBC 10.66 X1000 (4.8-10.8)
[2018-08-15 07:58] LABS: AGAP 11; BUN 13 mg/dL (8-22); CALCIUM 8.6 mg/dL (8.8-10.2); CHLORIDE 99 mmol/L (98-107); COSMO 276; CREATININE 0.8 mg/dL (0.7-1.2); ESTIMATED GFR > 60; GLUCOSE 201 mg/dL (70-104); POTASSIUM 3.9 mmol/L (3.5-5.1); SODIUM 135 mmol/L (136-145); TCO2 25 mmol/L (25-35)
[2018-08-15] MEDS: HUMALOG SUBQ SCH ×3 (08:31→17:25)
[2018-08-15] MEDS: MIRALAX PO SCH (08:33)
[2018-08-15] MEDS ORDERED: BASAGLAR SUBQ SCH (09:00)
--- NOTE | 2018-08-15 13:01 | PROGRESS NOTE ---
DATE: 08/15/2018 SUBJECTIVE: This patient is doing much better. He is able to sit and move a little bit better by himself. Physical Therapy on board. OBJECTIVE: Vital Signs: Temperature 98 degrees, pulse 84, respiratory rate 16, blood pressure 144/82, and oxygen saturation 100% on room air. HEENT: Head normocephalic. No trauma. PERRLA. Neck: Supple. No JVD. No masses. Central trachea. Chest: Clear to auscultation. No wheezing. No rales. Abdomen: Soft, nontender, and nondistended. No hepatosplenomegaly. Cardiovascular: RRR. Extremities: Right thigh dressing that looks clean, dry and intact. It is a little bit painful to palpation. I do not see any drainage. Neurological: Alert and oriented x3. No focal deficits. LABORATORY: WBC 10, hemoglobin 10.9, hematocrit 33, and platelets 271,000. Sodium 135, potassium 3.9, chloride 99, bicarbonate 25, BUN 13, creatinine 0.8, glucose 201, and calcium 8.6. ASSESSMENT AND PLAN: 1. MSSA bacteremia. Continue with current antibiotics. Infectious Disease Department on board. We do have a new blood culture from today that so far has been negative. 2. Abscess on the right thigh, status post I and D postoperative day #2. Surgery Department on board. Culture showed also MSSA. 3. Type 2 diabetes with a hemoglobin A1c of 9.1. Blood sugar is better controlled. We will continue with the same treatment. 4. Deep vein thrombosis prophylaxis with sequential compression devices. 5. Gastrointestinal prophylaxis with proton pump inhibitors. 6. Constipation. Continue with MiraLAX. cc: Gagandeep Mcgee MD
[2018-08-15] MEDS: SODIUM CHLORIDE 0.9% INJ SCH (14:14)
[2018-08-15] MEDS: PROTONIX IV SCH (14:14)
--- NOTE | 2018-08-15 19:37 | INFECTIOUS DISEASE PROGRESS NO ---
DATE: 08/15/2018 PRESENT ILLNESS: Mr. Aguilar has an oxacillin sensitive Staphylococcus aureus, right thigh infection, with an associated bacteremia. The patient is status post incision and drainage of the right thigh intramuscular abscess. MEDICATIONS: He is receiving Kefzol 2 g IV every 8 hours. PHYSICAL EXAMINATION: Vital Signs: Temperature is 98.6 degrees, pulse rate 96, respiratory rate 16, blood pressure 144/82, O2 saturation is 98% on room air. General: This is a fairly healthy- appearing, middle-aged gentleman, lying in the bed, currently in no acute distress. HEENT: Atraumatic, normocephalic. Oral mucous membranes are pink and moist. Conjunctivae are pink. Neck: Supple. Trachea is midline. Cardiovascular: Heart rate is regular. Respiratory: Lung sounds are clear to auscultation bilaterally. Abdomen: Soft, round, nontender. Bowel sounds are active. Integumentary: The dressing was removed from his right, lateral thigh, which was saturated with serosanguineous drainage. The incision looks clean with no surrounding erythema. Neurologic: He is awake, alert, oriented, and able to move his extremities in the bed independently. He has been walking with a walker in the hallways. LABORATORY AND X-RAY: Today, his white count is 10.66, hemoglobin 10.9, platelet count 371,000. Creatinine is 0.8. Estimated GFR is greater than 60. His blood and right thigh cultures have grown an oxacillin sensitive Staphylococcus aureus. Another set of blood cultures have been drawn this morning and are pending. No imaging reports today. ASSESSMENT AND PLAN: Mr. Aguilar is being treated for an oxacillin-sensitive Staphylococcus aureus infection to his right thigh with an associated bacteremia. Today, his leukocytosis has resolved, and he is feeling better, and has increased mobility to that right leg. He is receiving Kefzol 2 g intravenously every 8 hours, which we will continue. The plan is for us to get a set of sterile blood cultures, after which time we should be able to put in a peripherally inserted central catheter and send him home so that he can receive 2 weeks of intravenous Ancef. Day 1 of treatment will be the first set of sterile blood cultures, which will hopefully be today's set. These plans have been discussed with and recommended by Dr. Stover. COMORBIDITIES: Include diabetes mellitus and obstructive sleep apnea. Dictated by RENETTA Moncada for Efren Stover MD cc: Efren Stover MD [facility]
[2018-08-16] MEDS: DILAUDID IV PRN ×2 (00:38→23:57)
[2018-08-16] MEDS: APIDRA SUBQ SCH ×4 (06:16→20:57)
--- NOTE | 2018-08-16 08:00 | GENERAL SURGERY PROGRESS NOTE ---
DATE: 08/16/2018 SUBJECTIVE: Patient doing well. No major issues. OBJECTIVE: Vital Signs: Patient is currently afebrile. His vital signs are stable. General Exam: No acute distress. Cardiovascular: Regular rate and rhythm. Lungs: Grossly clear. Abdomen: Soft, nontender, nondistended. Extremities: Right leg appears to be improved overall. ASSESSMENT AND PLAN: A 53-year-old gentleman status post incision and drainage of intramuscular abscess on the right thigh. 1. Status post drainage. At this time, he seems to be doing well. We will defer antibiotic duration to Infectious Disease. From a surgical point of view, he will probably be discharged once everything is arranged to the satisfaction of Infectious Disease and the hospitalist. cc: Chan Pardo MD
[2018-08-16] MEDS: HUMALOG SUBQ SCH ×3 (08:15→17:00)
[2018-08-16] MEDS: KEFZOL 2 GM/D5W 2 GM/50 ML IVPB IV SCH ×3 (08:15→23:57)
[2018-08-16] MEDS: BASAGLAR SUBQ SCH (08:16)
[2018-08-16] MEDS: MIRALAX PO SCH (08:16)
[2018-08-16] MEDS: PROTONIX IV SCH (13:45)
[2018-08-16] MEDS: SODIUM CHLORIDE 0.9% INJ SCH (13:45)
--- NOTE | 2018-08-16 14:18 | PROGRESS NOTE ---
DATE: 08/16/2018 SUBJECTIVE: The patient is doing much better. He is having more physical activity. We will continue physical therapy. We will continue with antibiotics. Hopefully, tomorrow, we will have a negative blood culture and probably we can send this patient home. OBJECTIVE: Vital Signs: Temperature 98.2 degrees, pulse 81, respiratory rate 18, blood pressure 130/82, oxygen saturation 100% on room air. HEENT: Head normocephalic. No trauma. PERRLA. Neck: Supple. No JVD. No masses. Central trachea. Chest: Clear to auscultation. No wheezing. No rales. Abdomen: Soft, nontender, nondistended. No hepatosplenomegaly. Extremities: Right thigh dressing with some serous drainage, no pus. A little bit painful to palpation. Neurological Examination: The patient is alert and oriented x3. No focal deficits. Laboratory: Glucose 207. ASSESSMENT AND PLAN: 1. Methicillin-sensitive Staphylococcus aureus bacteremia. Continue with current antibiotics. Infectious disease department on board. We do have a new blood culture from yesterday that has been negative so far. 2. Abscess of the right thigh, status post incision and drainage, postoperative day #3. Surgery department on board. Culture showed methicillin-sensitive Staphylococcus aureus as well. 3. Type 2 diabetes with a hemoglobin A1c of 9.1. Blood sugar better controlled. Continue with the same treatment. 4. Deep vein thrombosis prophylaxis with sequential compression devices. 5. Gastrointestinal prophylaxis with proton pump inhibitors. 6. Constipation. Continue with MiraLAX. cc: Gagandeep Mcgee MD
[2018-08-16] MEDS: MELATONIN PO SCH (20:58)
[2018-08-16] MEDS: NORCO-10 PO PRN (20:58)
[2018-08-17] MEDS: APIDRA SUBQ SCH ×2 (06:09→13:44)
[2018-08-17] MEDS ORDERED: PROTONIX PO SCH (07:00)
[2018-08-17 08:21] LABS: AGAP 12; BUN 15 mg/dL (8-22); CALCIUM 9.1 mg/dL (8.8-10.2); CHLORIDE 98 mmol/L (98-107); COSMO 278; ESTIMATED GFR > 60; GLUCOSE 187 mg/dL (70-104); POTASSIUM 4.2 mmol/L (3.5-5.1); SODIUM 136 mmol/L (136-145); TCO2 26 mmol/L (25-35)
--- NOTE | 2018-08-17 08:21 | GENERAL SURGERY PROGRESS NOTE ---
DATE: 08/17/2018 SUBJECTIVE: Patient doing well. No major issues. OBJECTIVE: Vital Signs: Patient is currently afebrile. His vital signs are stable. General: No acute distress. Cardiovascular: Regular rate and rhythm. Lungs: Grossly clear. Abdomen: Soft, nontender, nondistended. Extremities: Right leg appears to be improved overall since admission. Dressing intact. ASSESSMENT AND PLAN: A 53-year-old gentleman status post incision and drainage of intramuscular abscess on the right side. Status post drainage. At this time, he is doing well. We are awaiting repeat blood cultures to be negative, which thus far they have been negative. Will follow while he is in the hospital. Defer discharge timing to Infectious Disease and Hospitalist. cc: Chan Pardo MD
[2018-08-17] MEDS: KEFZOL 2 GM/D5W 2 GM/50 ML IVPB IV SCH (08:26)
[2018-08-17] MEDS: MIRALAX PO SCH (08:27)
[2018-08-17] MEDS: HUMALOG SUBQ SCH ×2 (08:27→13:44)
[2018-08-17] MEDS: BASAGLAR SUBQ SCH (08:27)
[2018-08-17] MEDS: NORCO-10 PO PRN (09:47)
[2018-08-17 10:07] LABS: INR 1.01; PROTIME 14.1 Seconds (11.0-16.0)
[2018-08-17] MEDS ORDERED: NS 250 ML ONE (10:37)
[2018-08-17 11:22] VITALS: BP 127/82
--- NOTE | 2018-08-18 12:43 | DISCHARGE SUMMARY ---
ADMISSION DATE: 08/10/2018 DISCHARGE DATE: 08/17/2018 DISCHARGE DIAGNOSES: 1. Methicillin-sensitive Staphylococcus aureus. 2. Abscess to the right thigh status post incision and drainage with a positive culture that showed methicillin-sensitive Staphylococcus aureus. 3. Type 2 diabetes. 4. Constipation. PROCEDURES PERFORMED: 1. Lower extremity CT scan dated 08/10/2018 impression: Osteoarthritis, no evidence of acute bony disease, soft tissue swelling on the lateral aspect of the distal femur and in the subcutaneous fat of the lateral thigh. 2. Lower extremity CT dated 08/13/2018 impression: Intramuscular abscess of the vastus lateralis at the posterior lateral, mid right thigh. 3. Incision and drainage of the right thigh intramuscular abscess with ultrasound dated 08/14/2018 by Surgery Department. HOSPITAL COURSE: A 53-year-old male with a past medical history of diabetes, who presented to the emergency department due to swelling and pain in his right lower extremity after his last diabetes injection. He got to the point where he could not walk, and his right lateral thigh near the injection site was swollen, hard and painful, low-grade fever. Initial evaluation showed a very hard right lateral thigh. White blood cell count was 18.5, blood sugar 421. CT scan of the lower extremity was performed, and initially was admitted due to cellulitis versus abscess. He went to the medical floor and then we repeated a CT scan on 08/13/2018 that showed an intramuscular abscess of the vastus lateralis at the posterior lateral mid right thigh. Surgery Department was consulted, and they decided to go to the OR on 08/14/2018 and they did an I and D. After that procedure, this patient started to feel better. He was placed on antibiotics. We have a positive blood culture and wound culture that showed MSSA. Infectious Disease Department evaluated this patient and was taking care of this patient as well. He was placed on cefazolin 2 g q. 8 hours, and like I mentioned before he was improving on a daily basis. We started this patient on physical therapy. No more fever or chills. Surgery Department and Infectious Disease Department followed this patient closely. We repeated the blood culture and we waited 48 hours. Since the second blood culture was negative, we decided to put a PICC line and send this patient home with IV antibiotics, as directed per Infectious Disease Department. At the moment of discharge, the patient was in a stable medical condition, tolerating p.o. and ambulating. PHYSICAL EXAMINATION: Vital Signs: Temperature 98.4 degrees, pulse 76, respiratory rate 20, blood pressure 127/82, oxygen saturation 98 on room air. HEENT: Head normocephalic. No trauma. PERRLA. Neck: Supple. No JVD. No masses. Central trachea. Chest: Clear to auscultation. No wheezing. No rales. Abdomen: Soft, nontender, nondistended. No hepatosplenomegaly. Extremities: Right side with a new dressing without any kind of problems today. It looks dry and intact. He does have some pain to palpation at the level of the thigh, but much better. Neurological examination: The patient is alert and oriented x3. No focal deficits. LABORATORY: Sodium 136, potassium 4.2, chloride 98, bicarbonate 26. BUN 15, creatinine 1, glucose 187, calcium 9.1. DISCHARGE MEDICATIONS: 1. Tylenol 650 mg p.o. q. 6 hours p.r.n. fever or chills. 2. [place] 10 one tablet p.o. q. 6 hours as needed for pain. 3. Insulin glargine 30 units subcutaneous q.a.m. 4. Melatonin 10 mg p.o. at bedtime. 5. Metformin 500 mg p.o. b.i.d. 6. MiraLAX 17 g p.o. daily. 7. Restoril 7.5 mg p.o. at bedtime as needed for insomnia. TIME DISCHARGING THIS PATIENT: 35 minutes. cc: Gagandeep Mcgee MD
== END 2018-08-17 13:58 | disposition home health service (06) | DRG 856 ==
LOC: ED 21:04 → SUATTDRO 21:05 → 3N 08-11 02:07 → SUATTDRO 08-11 02:07
PROVIDERS: ATTEND Internal Medicine
CPT/HCPCS: 36569; 73700; 73701; 80048; 80053; 82948; 83036; 85025; 85610; 86140; 87040; 87070; 87077; 87186; 96365; 96375; 97116; 97162; 97530; 99285; A9270; C9113; J0330; J0690; J1170; J1200; J1815; J1956; J2405; J3010; J3370; J7040; J7050; Q9967; S0164; XXXXX